=== PATIENT | male | born 1965 | race Caucasian/White ===

== ENCOUNTER 2021-08-01 22:29 | Emergency (ER) | payer OTHER ==
[2021-08-01 23:33] LABS: BASOPHIL 0.3 % (0-2); EOSINOPHIL 1.9 % (0-5); HCT 51.8 % (42.0-52.0); HGB 17.7 g/dl (13.2-18.0); LYMPHOCYTE 14.1 % (15-48); MCH 29.4 pg (25.0-31.0); MCHC 34.2 g/dL (32.0-36.0); MCV 85.9 fL (78.0-100.0); MPV 9.1 fL (6.0-9.5); NEUTROPHIL 77.3 % (41-80); NRBC 0; PLT 195 K/uL (150-400); RBC 6.03 M/uL (4.70-6.00); WBC 12.3 K/uL (4.0-10.5)
[2021-08-01 23:46] LABS: ALBUMIN 3.6 g/dL (3.4-5.0); BILIRUBIN - TOTAL 0.5 mg/dL (0.2-1.0); BUN/CREAT RATIO (CALC) 19.2 RATIO; CREATININE 0.73 mg/dL (0.67-1.17); GLOBULIN (CALCULATION) 4.1 g/dL; POTASSIUM 4.1 mmol/L (3.5-5.1); TOTAL PROTEIN 7.7 g/dL (6.4-8.2)
[2021-08-02 04:27] LABS: LACTIC ACID 1.6 mmol/L (0.4-1.9)
== END 2021-08-02 01:54 | disposition home or self-care (01) ==
LOC: FER 22:29
PROVIDERS: Internal Medicine
DX: I11.0 Hypertensive heart disease with heart failure (principal); I50.9 Heart failure, unspecified; E11.65 Type 2 diabetes mellitus with hyperglycemia; F17.210 Nicotine dependence, cigarettes, uncomplicated; Z79.82 Long term (current) use of aspirin; Z79.84 Long term (current) use of oral hypoglycemic drugs
CPT/HCPCS: 36415; 71045; 80053; 83605; 83690; 83880; 84145; 84484; 85025; 93005